=== PATIENT | male | born 1955 | race Caucasian/White ===

== ENCOUNTER 2018-06-14 07:32 | Outpatient (CLI) | payer OTHER | END 2018-06-14 07:41 | disposition home or self-care (01) | LOC: SONOGRAMA 07:32 | DX: E04.2 Nontoxic multinodular goiter (principal) ==

== ENCOUNTER 2018-07-03 22:48 | Emergency (ER) | payer OTHER ==
[~2018-07-03] VITALS: Ht 172.7 cm; Wt 79.4 kg
[2018-07-03] MEDS ORDERED: SINGULAIR10 MG (22:59)
[2018-07-03] MEDS ORDERED: HYZAAR 100-12.1 EACH (22:59)
[2018-07-03] MEDS ORDERED: NEURONTIN600 MG (22:59)
[2018-07-04] MEDS ORDERED: TESSALON PERLE100 M1 PO (03:47)
[2018-07-04] MEDS ORDERED: OSEL75CA PO (03:47)
== END 2018-07-04 03:57 | disposition home or self-care (01) ==
LOC: ER 22:48
DX: J09.X2 Influenza due to identified novel influenza A virus with other respiratory manifestations (principal); R50.9 Fever, unspecified

== ENCOUNTER 2020-12-07 10:42 | Outpatient (CLI) | payer OTHER ==
[~2020-12-07 10:42] MED LIST: HYZAAR 100-12.1 EACH; NEURONTIN600 MG; OSEL75CA PO; SINGULAIR10 MG; TESSALON PERLE100 M1 PO
== END 2020-12-07 10:48 | disposition home or self-care (01) ==
LOC: SONOGRAMA 10:42
PROVIDERS: ATTEND Pathology Anatomic Pathology
DX: E04.2 Nontoxic multinodular goiter (principal)

== ENCOUNTER 2021-11-18 09:16 | Outpatient (CLI) | payer OTHER | END 2021-11-18 09:19 | disposition home or self-care (01) | LOC: SONOGRAMA 09:16 | PROVIDERS: ATTEND Pathology Anatomic Pathology & Clinical Pathology | DX: E04.1 Nontoxic single thyroid nodule (principal) ==